=== PATIENT | female | born 1985 | race Caucasian/White ===

== ENCOUNTER 2023-04-16 11:22 | Emergency (ER) | payer BC ==
[~2023-04-16] VITALS: Ht 160 cm; Wt 75.7 kg
[2023-04-16 11:36] VITALS: BP_SYST 117
--- NOTE | 2023-04-16 11:40 | NUR ---
PT STATES LOWER ABD PAIN FOR LAST 4 DAYS, DENIES DYSURIA. STATES PAIN IS 4/10
--- NOTE | 2023-04-16 11:50 | NUR ---
URINE PREG NEGATIVE, URINE SENT TO LAB.
[2023-04-16 12:18] LABS: HEMATOCRIT 25.3 % (36-48); HEMOGLOBIN 7.4 g/dL (12.0-16.0); MEAN CORPUSCULAR HEMOGLOBIN 18 pg (27-31); MEAN CORPUSCULAR HGB CONC 29 % (32-36); MEAN CORPUSCULAR VOLUME 61 fL (79.0-98.0); PLATELET COUNT (AUTO) 291 K/uL (130-430); RED BLOOD CELL COUNT(AUTO) 4.16 MIL/uL (4.2-6.2); RED CELL DISTRIBUTION WIDTH 18.8 % (9.0-15.0); WHITE BLOOD COUNT (AUTO) 3.5 K/uL (4.8-10.8)
[2023-04-16 12:29] LABS: CALCIUM 8.2 mg/dL (8.4-11.0); CREATININE 0.5 mg/dL (0.55-1.30)
[2023-04-16 12:32] LABS: BILIRUBIN,URINE NEGATIVE (NEGATIVE); BLOOD, URINE NEGATIVE (NEGATIVE); CLARITY/URINE CLEAR (CLEAR); COLOR,URINE YELLOW (YELLOW); GLUCOSE,URINE NEGATIVE (NEGATIVE); KETONES,URINE NEGATIVE (NEGATIVE); LEUKOCYTE ESTERASE ,URINE NEGATIVE (NEGATIVE); NITRITE, URINE NEGATIVE (NEGATIVE); PH,URINE 6.5 (5.0-8.0); PROTEIN URINE NEGATIVE (NEGATIVE); UROBILINOGEN,URINE 0.2 (0.2-1.0)
[2023-04-16 12:34] LABS: ALBUMIN 3.9 g/dL (3.4-4.8); TOTAL BILIRUBIN 0.5 mg/dL (0.0-1.0)
[2023-04-16 12:45] LABS: BASOPHILS % (MANUAL) 0 % (0-2); EOSINOPHILS % (MANUAL) 2 % (0-7); LYMPHOCYTES % (MANUAL) 46 % (20-46); MONOCYTES % (MANUAL) 7 % (0-11)
--- NOTE | 2023-04-16 13:00 | NUR ---
ER at bedside examining patient.
[2023-04-16] MEDS ORDERED: TRAM50TA2 PO (13:17)
--- NOTE | 2023-04-16 13:41 | NUR ---
Patient given written and verbal discharge instructions and verbalizes understanding. ER MD discussed with patient the results and treatment provided. Patient in stable condition. ID arm band removed. Patient educated on pain management and to follow up with PMD. Opportunity for questions provided and answered. Medication side effect fact sheet provided.
[2023-04-16 13:42] VITALS: BP_SYST 117
== END 2023-04-16 13:41 | disposition home or self-care (01) ==
LOC: SED 11:22
DX: R10.2 Pelvic and perineal pain (principal); D21.9 Benign neoplasm of connective and other soft tissue, unspecified; Z79.899 Other long term (current) drug therapy
CPT/HCPCS: 36415; 76376; 80053; 81003; 81025; 85007; 85027; 99284